=== PATIENT | female | born 1955 | race Caucasian/White ===

== ENCOUNTER 2016-09-19 09:52 | Inpatient (IN) | payer MEDICARE ==
[~2016-09-19] VITALS: Ht 162.6 cm; Wt 48.8 kg
[~2016-09-19 09:52] MED LIST changes: -CHIL100S50 PO; -HYDR12.57 PO; -KETO10 PO; -LISI-515 PO; -METH500T3 PO; -NATU32.5 PO; -OXYC1TAB36 PO; -SENN1TAB PO; -SOMA350T PO
[2016-09-19] MEDS ORDERED: LISI-515 PO (14:28)
[2016-09-19] MEDS ORDERED: HYDR12.57 PO (14:28)
[2016-09-19] MEDS ORDERED: NATU32.5 PO (14:28)
[2016-09-23 07:23] VITALS: BP 152/78; PULSE 70; RESP 20; TEMP 98.5; O2SAT 99
[2016-09-23] MEDS ORDERED: INSULIN HUMAN REGULAR 1,000 UNITS/10 ML VIAL SQ PRN (07:45)
[2016-09-23] MEDS ORDERED: SODIUM CHLORID 0.9% 500 ML IV PRN (07:45)
[2016-09-23] MEDS ORDERED: METOPROLOL TARTRATE 25 MG TAB PO PRN (07:45)
[2016-09-23] MEDS ORDERED: CHLORHEXIDINE GLUCONATE 2 % 1 PACK (2 CLOTHS) TOPICAL PRN (07:45)
[2016-09-23] MEDS ORDERED: LACTATED RINGER'S 1000 ML IV PRN (07:45)
[2016-09-23] MEDS ORDERED: POVIDONE IODINE 5% (ANTISEPSIS KIT) 4 APPLICATIONS EACH NARE PRN (07:45)
[2016-09-23] MEDS ORDERED: SODIUM CHLORIDE 0.9% INJ 100 ML ONE (07:46)
[2016-09-23] MEDS ORDERED: CLINDAMYCIN PHOS 600 MG/4 ML VIAL ONE (07:46)
[2016-09-23] MEDS ORDERED: THROMBIN (TOPICAL) 5,000 UNIT VIAL ONE (07:55)
[2016-09-23] MEDS ORDERED: GENTAMICIN SULFATE 80 MG/2 ML VIAL ONE (07:56)
[2016-09-23] MEDS ORDERED: LIDOCAINE 1%/EPINEPHrine 1:100,000 SOLN 20 ML VIAL ONE (07:56)
[2016-09-23] MEDS ORDERED: GELFOAM SIZE 100 ONE (07:56)
[2016-09-23] MEDS ORDERED: LACTATED RINGER'S 1000 ML INJ 1,000 ML IV SCH (08:00)
[2016-09-23] MEDS ORDERED: DEXAMETHASONE SOD PHOS 4 MG/ML VIAL ONE (08:18)
[2016-09-23] MEDS ORDERED: MIDAZOLAM HCL 2 MG/2 ML VIAL ONE (08:18)
[2016-09-23] MEDS ORDERED: FAMOTIDINE 20 MG/2 ML VIAL ONE (08:19)
[2016-09-23] MEDS ORDERED: APREPITANT 40 MG CAP ONE (08:19)
[2016-09-23] MEDS ORDERED: fentaNYL CITRATE 250 MCG/5 ML AMP ONE (08:25)
[2016-09-23] MEDS ORDERED: CLINDAMYCIN 600 MG/NS 100 ML IV SCH ×2 (10:00)
[2016-09-23] MEDS ORDERED: SODIUM CHLOR 0.9% 250 ML INJ 250 ML IV ONE (12:00)
[2016-09-23] MEDS ORDERED: SODIUM CHLORID 0.9% 500 ML INJ 500 ML IV ONE (12:00)
[2016-09-23] MEDS ORDERED: LACTATED RINGER'S 1000 ML INJ 1,000 ML IV ONE (12:00)
[2016-09-23] MEDS ORDERED: ONDANSETRON HCL 4 MG/2 ML VIAL IV PUSH ONE (12:00)
[2016-09-23] MEDS ORDERED: NORMOSOL R INJ 2,000 ML IV ONE (12:00)
[2016-09-23] MEDS ORDERED: ePHEDrine/NS 25 MG/5 ML SYR IV ONE (12:00)
[2016-09-23] MEDS ORDERED: PHENYLEPH/NS 1000 MCG/10 ML SYR IV ONE (12:00)
[2016-09-23] MEDS ORDERED: PROPOFOL 200 MG/20 ML AMP IV ONE (12:00)
[2016-09-23] MEDS ORDERED: PHENYLEPHRINE HCL 10 MG/ML VIAL IV ONE (12:00)
[2016-09-23] MEDS ORDERED: ACETAMINOPHEN 1000 MG/100 ML VIAL IV ONE (12:41)
[2016-09-23] MEDS ORDERED: RESP: ALBUTEROL 2.5 MG/IPRATROPIUM 0.5 MG NEB (PRN) NEB (18:00)
[2016-09-23] MEDS ORDERED: ACETAMINOPHEN/HYDROcodone 325 MG/5 MG TAB PO PRN (18:00)
[2016-09-23] MEDS ORDERED: SODIUM CHLORIDE 0.9% FLUSH 5 ML FLUSH IVF PRN (18:00)
[2016-09-23] MEDS: D5-1/2 NS + KCL 20 MEQ INJ 1,000 ML IV SCH (18:00)
[2016-09-23] MEDS ORDERED: ONDANSETRON HCL 4 MG/2 ML VIAL IV PRN (18:00)
[2016-09-23] MEDS ORDERED: METHOCARBAMOL 500 MG TAB PO PRN (18:00)
[2016-09-23] MEDS ORDERED: NALOXONE HCL 0.4 MG/ML AMP IV PRN ×2 (18:00)
[2016-09-23] MEDS ORDERED: DO NOT ADM ANY ANTICOAGULANT DRUGS PRN (18:07)
--- NOTE | 2016-09-23 18:38 | PD.OP ---
Operative Report Date of Surgery: September 23, 2016 Preoperative Diagnosis: (1) Lumbar radiculopathy (2) Spondylolisthesis of lumbar region (3) Lumbar canal stenosis (4) Lumbar degenerative disc disease 1. Grade 1 L3 4 and L4 5 spondylolisthesis 2. Lumbar spondylosis and degenerative disc disease, severe L4 5 , moderate L3 4 3. Severe L3 4 and L4 5 stenosis 4. Right L4-L5 radiculopathy Postoperative Diagnosis: (1) Lumbar radiculopathy (2) Spondylolisthesis of lumbar region (3) Lumbar canal stenosis (4) Lumbar degenerative disc disease 1. Grade 1 L3 4 and L4 5 spondylolisthesis 2. Lumbar spondylosis and degenerative disc disease, severe L4 5 , moderate L3 4 3. Severe L3 4 and L4 5 stenosis 4. Right L4-L5 radiculopathy Procedure: 1. Bilateral L3 4 and L4 5 decompressive semi-laminectomy, right facetectomy and foraminotomy-microtechnique 2. L3 4 and L4 5 discectomy, interbody fusion,PEEK cage, autograft and allograft bone with demineralized bone matrix-microtechnique 3. Bilateral L3-L5 posterior instrumentation with pedicle screw fixation. Intraoperative reduction L3 4 and L4 5 anterior listhesis Anesthesia: Gen. Surgeon: Mahamed Ardon Gas Specialist(s): Odessa Toribio Operation and Findings: Findings: Severe epidural adhesions at the right L4 5 greater than L3 4 lateral recess. Relative decreased bone density Procedure in detail The patient was brought to the operating room and general endotracheal anesthesia induced without difficulty Lines were established. Anesthesia Sequential compression devices were in place The patient was positioned prone on the concentric Leo table with the side bolsters and all extremities appropriately padded Leads for intraoperative neuro monitoring were placed prior to positioning and a baseline study obtained Appropriate time-out procedure was performed with all personnel present and in agreement The lumbar region was shaved with clippers and sterilely prepped and draped 1% Xylocaine with epinephrine was used for local infiltration over the incision site which was made approximately 4.5 cm lateral to the midline at the bilateral L3-5 level and carried sharply down to the fascia. The fascia was sharply incised and finger dissection was used to separate the normal intermuscular plane at the L3-5 level, allowing direct palpation of the junction of the and pedicle and transverse process on each side. The entry point for the pedicle screws were determined by anatomic and radiographic landmarks. Using AP and lateral C-arm imaging, the Jamshidi needle was guided through the bilateral L3, L4 and L5 pedicle. The intraoperative C-arm imaging was used to verify appropriate Jamshidi needle placement. The patient's bone density was significantly diminished and great care was required to cannulate the pedicle with the Jamshidi needle. At the right L4 pedicle, the transverse process fractured upon readjustment of the trajectory of the Jamshidi needle. Thus at this level direct visualization under the microscope to determine entry point was required. The lateral aspect of the pedicle was fractured, thus the Jamshidi needle entry point was placed relatively low at the base of the pedicle and junction at the vertebral body. The wires were then placed through the Jamshidi needle cannulas, and the cannula was withdrawn. The wires were temporarily clipped away from the operative field. On the right side Werner elevator was used for subperiosteal elevation of paraspinous musculature and fascia away from the lamina and spinous processes of L3 and L4 and L5. The deep self-retaining retractor was placed sequentially at the L3-4 and L4-5 levels on the right side for the decompression portion of the procedure. The appropriate levels were verified with intraoperative C-arm The microscope was moved into place and used for the remainder of the procedure including the closure The TPS drill with a 5 mm bone bur followed by the Kerrison rongeur was used to remove the inferior two thirds of the lamina at the cephalad level of the decompression and the superior aspect of the lamina at the caudal level of the decompression. This was performed starting on the right side, and then working across midline towards the left. The facetectomy and foraminotomy was performed on the right side at the L3 4 and L4 5 level with the TPS drill and with the 2 and 3 mm Kerrison rongeur. On the side of the cage placement, an additional portion of the medial facet was removed to allow sufficient room for placement of the cage without significant retraction of the thecal sac and exiting nerve root. Hypertrophied ligamentum flavum was elevated away from the thecal sac and exiting nerve roots with the thin ligament dissector and resected with a 15 blade knife and Kerrison rongeur. The thecal sac and exiting nerve root were freed up from surrounding adhesions with the microdissectors and gently retracted medially revealing the underlying disc and annulus sequentially at each level. There were rather severe adhesions of the thecal sac and exiting nerve root to the ligament and osteophytic disc at the L4 5 greater than L3 4 level. Quite a bit of cautious dissection was required and the microscope to free up the nerve root and thecal sac. There was moderate subannular disc herniation. The annulus was incised at each level with the 11 blade knife and discectomy performed with pituitary biopsy forceps and straight and angled curettes At the L4 5 level, the posterior aspect of the vertebral bodies were in direct contact. The interspace was gradually opened with a blunt vertebral body facility environmental technician. The endplate scrapers were used to decorticate the endplates and any remaining debris was removed with the antibiotic irrigation and suction and pituitary biopsy forceps The appropriate size lordotic PEEK cage was packed with retained lamina cancellus autograft, and psoas bone chips, and a small amount of demineralized bone matrix The cage was placed at the L3 4 and then the L4 5 level with a good fit of the cage. Additional bone graft material was placed in the interspace at each level both prior to and after placement of the cage. The placement was checked under the microscope and with intraoperative C-arm and felt to be satisfactory. The thecal sac and nerve roots were probed with the long blunt nerve hook and felt to be well decompressed The cannulated 5.5 mm tap was then used to prepare the pedicle screw sites on each side, with the dilators used to protect the surrounding tissue. The appropriate length Spine Wave Sniper percutaneous cannulated pedicle screw attached to the MIS extenders were placed into the bilateral L3, L4 and L5 pedicle using the existing guidewires which were then removed. Pedicle screw placement was checked with intraoperative C-arm imaging and felt to be satisfactory. The percutaneous rods were placed across the pedicle screws on each side. The locking caps were secured with the torque wrench and anti-torque device Compression and alignment were achieved as necessary with the rods and reducers. The entire construct was checked with intraoperative C-arm and felt to be satisfactory The region was well irrigated with antibiotic irrigation The posterior lateral structures at the bilateral L4 5 levels were decorticated with the TPS drill The shavings were left in place, to which was added the remaining autograft and allograft bone which was firmly packed in place for the posterior lateral fusion. The 7 mm flat fluted drain was left in place at the operative site on the right side and brought out through a incision at the upper lumbar region and secured to the skin with nylon suture and attached to sterile suction bleeding was carefully controlled with the bipolar forceps The closure was performed with 0 Vicryl interrupted for the deep and superficial fascia, with 3-0 Vicryl for the subcutaneous closure and 4-0 Vicryl running subcuticular closure. Dressings sterile Mastisol, Steri-Strips and Primapore was placed The patient was turned into supine position and taken to recovery room in stable condition All counts were correct at the end of the case Estimated blood loss was 100 cc No specimen was sent to pathology Neuro monitoring was stable during the procedure Mahamed Ardon MD September 23, 2016 18:38
[2016-09-23] MEDS: HYDROmorphone HCL PCA 6 MG/30 ML IV SCH (18:50)
[2016-09-23 20:36] VITALS: O2SAT 99
[2016-09-23] MEDS: SODIUM CHLORIDE 0.9% FLUSH 5 ML FLUSH IVF SCH (21:00)
[2016-09-23] MEDS ORDERED: ZOLPIDEM TARTRATE 10 MG TAB PO PRN (22:00)
[2016-09-23] MEDS: PCA - TOTAL MG DILAUDID DELIVERED PER SHIFT OTHER SCH (22:00)
[2016-09-23 22:11] VITALS: BP 117/67; PULSE 81; RESP 20; TEMP 96.6; O2SAT 100
[2016-09-23] MEDS: DOCUSATE SODIUM 100 MG CAP PO SCH (22:52)
[2016-09-23] MEDS: ALPRAZolam 1 MG TAB PO PRN (22:52)
[2016-09-23] MEDS: ACETAMINOPHEN/HYDROcodone 325 MG/10 MG TAB PO PRN (22:54)
--- NOTE | 2016-09-23 23:04 | RADRPT ---
EXAM DATE/TIME: 09/23/2016 09:19 [facility] COMPARISON: No previous studies available for comparison. INDICATIONS : Lumbar spine L3-4-5 laminectomy, fusion, and interbody cages. OR. MEDICAL HISTORY : Chronic obstructive pulmonary disease. SURGICAL HISTORY : None. ENCOUNTER: Initial ACUITY: 1 day PAIN SCORE: Non-responsive. LOCATION: Lumbar L3-4-5 FINDINGS: Postoperative screw and yann fixation noted across L3-4 and 5. No complications identified. CONCLUSION: 1. Postoperative lumbar fusion as above. Jama Harden MD on September 23, 2016 at 23:01 Board Certified Radiologist. This report was verified electronically.
[2016-09-24] VITALS (8 sets, daily range): BP systolic 95–124; BP diastolic 53–73; PULSE 72–86; RESP 17–20; TEMP 96–99.2; O2SAT 95–99
[2016-09-24] MEDS: D5-1/2 NS + KCL 20 MEQ INJ 1,000 ML IV SCH ×2 (04:00→12:07)
[2016-09-24] MEDS: PCA - TOTAL MG DILAUDID DELIVERED PER SHIFT OTHER SCH ×3 (06:00→22:00)
[2016-09-24] MEDS: ALPRAZolam 1 MG TAB PO PRN ×2 (08:22→21:53)
[2016-09-24] MEDS: HYDROCHLOROTHIAZIDE 12.5 MG CAP PO SCH (08:23)
[2016-09-24] MEDS: DOCUSATE SODIUM 100 MG CAP PO SCH ×2 (08:24→21:53)
[2016-09-24] MEDS: PANTOPRAZOLE SOD 40 MG DELAYED RELEASE TAB PO SCH (08:24)
[2016-09-24] MEDS: REMOVE OLD PATCH T-DERMAL SCH (08:24)
[2016-09-24] MEDS: NICOTINE 14 MG/24 HR PATCH T-DERMAL SCH (08:24)
[2016-09-24] MEDS: ACETAMINOPHEN/HYDROcodone 325 MG/10 MG TAB PO PRN ×2 (08:31→21:53)
[2016-09-24] MEDS: SODIUM CHLORIDE 0.9% FLUSH 5 ML FLUSH IVF SCH ×2 (08:34→21:00)
[2016-09-24] MEDS ORDERED: THYROID 32.5 MG PO SCH (09:00)
[2016-09-24] MEDS: HYDROmorphone HCL PCA 6 MG/30 ML IV SCH (11:24)
[2016-09-24 11:34] LABS: AUTOMATED NEUTROPHIL # 5.7 TH/MM3 (1.8-7.7); BASOPHIL # 0.1 TH/MM3 (0-0.2); BASOPHIL % 0.8 % (0.0-2.0); EOSINOPHIL # 0.1 TH/MM3 (0-0.4); EOSINOPHIL % 1.2 % (0.0-4.0); HEMATOCRIT 37.9 % (35.0-46.0); HEMO FLAGS DIFF FINAL; LYMPH % 23.3 % (9.0-44.0); MEAN CELL VOLUME 94.5 FL (80.0-100.0); MEAN CORPUSCULAR HEMOGLOBIN 30.5 PG (27.0-34.0); MEAN CORPUSCULAR HGB CONC 32.3 % (32.0-36.0); MONO % 8.9 % (0.0-8.0); NEUT % 65.8 % (16.0-70.0); PLATELET COUNT 157 TH/MM3 (150-450); RED BLOOD COUNT 4.01 MIL/MM3 (4.00-5.30); RED CELL DISTRIBUTION WIDTH 13.4 % (11.6-17.2); WHITE BLOOD COUNT 8.7 TH/MM3 (4.0-11.0)
[2016-09-24 11:41] LABS: APTT (PATIENT) 27.5 SEC (24.3-30.1); INTERNATIONAL NORMALIZED RATIO 0.9 RATIO; PROTHROMBIN TIME - PATIENT 10.3 SEC (9.8-11.6)
[2016-09-24] MEDS: KETOROLAC TROMETHAMINE 60 MG/2 ML (IM) VIAL IM SCH ×3 (11:56→23:18)
[2016-09-24] MEDS: MORPHINE SULFATE 4 MG/ML INJ IV PRN (11:59)
[2016-09-24 12:13] LABS: BICARBONATE 29.8 MEQ/L (21.0-32.0)
--- NOTE | 2016-09-24 12:48 | HHI.NSPN ---
(Waqar Clark) Note Status Status: Progress Note (Waqar Clark) Interval History Interval History 09/23: This is a 61-year-old female who presented to [facility] for a bilateral L3 4 and L4 5 decompressive semi-laminectomy, right facetectomy and foraminotomy with posterior instrumentation due to lumbar radiculopathy and stenosis. 09/24: The patient is doing well today but does state the pain to her back is not well controlled. She states the pain to the right leg is gone. She reports having gotten up and ambulated with the brace on with assistance and sitting in the chair. She does report having some anxiety due to the pain. Last night she did have some nausea but none at present. (Waqar Clark) Labs, Micro, & Vital Signs Results Allergies Coded Allergies Type Severity Reaction Last Updated Verified Keflex Allergy Severe HIVES 09/19/16 Yes Recent Impressions Lumbar Spine X-Ray 09/23/16 0000 Signed Impressions: Service Date/Time: Friday, September 23, 2016 09:19 - CONCLUSION: 1. Postoperative lumbar fusion as above. Jama Harden MD // 05:59 17:59 05:59 17:59 05:59 17:59 Intake Total 3150 ml 1119 ml Output Total 1025 ml 2605 ml Balance 2125 ml -1486 ml Intake IV Total 150 ml 1119 ml Other 3000 ml Output Urine Total 850 ml 2575 ml Drainage Total 50 ml 30 ml Estimated Blood Loss 125 ml # Bowel Movements 0 Laboratory Tests Test 09/23/16 09/24/16 07:13 10:28 Blood Type O POSITIVE Antibody Screen NEGATIVE Blood Bank Comment White Blood Count 8.7 TH/MM3 Red Blood Count 4.01 MIL/MM3 Hemoglobin 12.3 GM/DL Hematocrit 37.9 % Mean Corpuscular Volume 94.5 FL Mean Corpuscular Hemoglobin 30.5 PG Mean Corpuscular Hemoglobin 32.3 % Concent Red Cell Distribution Width 13.4 % Platelet Count 157 TH/MM3 Mean Platelet Volume 8.9 FL Neutrophils (%) (Auto) 65.8 % Lymphocytes (%) (Auto) 23.3 % Monocytes (%) (Auto) 8.9 % Eosinophils (%) (Auto) 1.2 % Basophils (%) (Auto) 0.8 % Neutrophils # (Auto) 5.7 TH/MM3 Lymphocytes # (Auto) 2.0 TH/MM3 Monocytes # (Auto) 0.8 TH/MM3 Eosinophils # (Auto) 0.1 TH/MM3 Basophils # (Auto) 0.1 TH/MM3 CBC Comment DIFF FINAL Differential Comment Prothrombin Time 10.3 SEC Prothromb Time International 0.9 RATIO Ratio Activated Partial 27.5 SEC Thromboplast Time Sodium Level 137 MEQ/L Potassium Level 4.0 MEQ/L Chloride Level 102 MEQ/L Carbon Dioxide Level 29.8 MEQ/L Anion Gap 5 MEQ/L Blood Urea Nitrogen 5 MG/DL Creatinine 0.36 MG/DL Estimat Glomerular Filtration 184 ML/MIN Rate Random Glucose 89 MG/DL Calcium Level 8.4 MG/DL Constitutional Vital Signs Date Time Temp Pulse Resp B/P Pulse Ox O2 Delivery O2 Flow Rate FiO2 09/24/16 12:41 96.7 81 20 103/73 96 09/24/16 12:06 18 09/24/16 11:24 18 09/24/16 08:36 96.5 72 20 102/54 99 09/24/16 08:05 96 Nasal Cannula 2.00 09/24/16 06:22 96.0 72 20 95/53 97 09/24/16 06:00 20 09/24/16 00:56 97.3 75 20 124/67 99 09/23/16 22:11 96.6 81 20 117/67 100 09/23/16 22:00 18 09/23/16 20:36 99 Nasal Cannula 2.00 09/23/16 19:30 73 20 114/69 99 Nasal Cannula 2 09/23/16 19:15 83 20 116/73 98 Nasal Cannula 2 09/23/16 19:00 90 20 115/68 98 Nasal Cannula 2 09/23/16 18:50 20 09/23/16 18:45 89 20 135/70 98 Nasal Cannula 2 09/23/16 18:30 85 20 101/59 93 Nasal Cannula 2 09/23/16 18:15 87 20 116/52 95 Nasal Cannula 2 09/23/16 18:01 98.3 97 20 105/69 97 Nasal Cannula 2 09/24/16 06:59 Intake Total 4269 ml Output Total 2655 ml Balance 1614 ml (Waqar Clark) Review of Systems/Exam ROS Constitutional: The patient denies any fever or chills. Respiratory: The patient denies any shortness of breath or productive cough. Cardiovascular: The patient denies any chest pain, palpitations or irregular heart beat. Gastrointestinal: The patient did have some nausea last night but none at present. She denies any abdominal pain, vomiting or bowel incontinence. Genitourinary: The patient has a Monson catheter. Musculoskeletal: The patient denies any pain or weakness to the extremities. Back: The patient complains of pain to the back at the incision. Neurological: The patient denies any headache, dizziness, numbness or tingling. Psychiatric: The patient is anxious due to the pain. Exam General: Well developed, well nourished, thin female who appears her stated age , NAD. HEENT: Normocephalic, atraumatic. Respiratory: Essentially clear bilaterally, equal excursion, non-laboured, on NC. Cardiovascular: S1S2 w/RRR w/o M/G/R, radial & pedal pulses 2+ bilaterally, cap refill < 2 sec, no pedal edema. Gastrointestinal: Abdomen soft, nontender, positive bowel sounds. Genitourinary: Monson catheter to BSD w/clear yellow urine. Extremities: PRECIADO w/o difficulty, NTTP, no evident deformity, discolouration or clubbing. Back: Intact surgical dressing, TTP along surgical incision, SHELLI drain to bulb suction w/serosanguinous drainage. Psychiatric: Patient states she is anxious due to pain, readily interacts and smiles, affect normal. Neurological: AAOx3 Speech clear & appropriate Sensation grossly intact to light touch to all extremities Motor strength normal to all flexion & extension muscle groups (Waqar Clark) Medications Current Medications Current Medications Medications (Trade) Dose Ordered Sig/Curt Route Start Time Stop Time Status Last Admin (Ravia 5-325 Mg) 1 tab Q4H PRN PO 09/23/16 18:00 (Ravia 10-325 Mg) 1 tab Q4H PRN PO 09/23/16 18:00 09/24/16 08:31 (Morphine Inj) 4 mg Q3H PRN IV 09/23/16 18:00 09/24/16 11:59 (Narcan Inj) 0.4 mg UNSCH PRN IV 09/23/16 18:00 (Narcan Inj) 0.4 mg UNSCH PRN IV 09/23/16 18:00 (Dilaudid SOLAR DESIGN ENGINEER Inj) 6 mg UNSCH IV 09/23/16 18:00 09/24/16 11:24 SOLAR DESIGN ENGINEER Dosage Infused (Pha) 1 Q8HR OTHER 09/23/16 22:00 09/24/16 06:00 (Colace) 100 mg BID PO 09/23/16 21:00 09/24/16 08:24 (Protonix) 40 mg DAILY PO 09/24/16 09:00 09/24/16 08:24 (Zofran Inj) 4 mg Q6H PRN IV 09/23/16 18:00 (Robaxin) 500 mg Q8HR PRN PO 09/23/16 18:00 (NS Flush) 2 ml UNSCH PRN IVF 09/23/16 18:00 IV Flush 2 ml 2 ml BID IVF 09/23/16 21:00 09/23/16 21:00 (D5-1/2 NS + KCl 20 Meq Inj) 1,000 ml @ 100 mls/hr Q10H IV 09/23/16 18:00 09/24/16 12:07 Miscellaneous Information ALL NURSING DEPARTME... UNSCH PRN .XX 09/23/16 18:07 09/24/16 18:06 (Xanax) 1 mg BID PRN PO 09/23/16 22:00 09/24/16 08:22 (Ambien) 10 mg HS PRN PO 09/23/16 22:00 (Microzide) 12.5 mg DAILY PO 09/24/16 09:00 09/24/16 08:23 (Prinivil) 20 mg HS PO 09/24/16 21:00 Patient Own Medication PT OWN MED: NON-FORMULARY DRUG (Thyr... DAILY PO 09/24/16 09:00 Hold (Habitrol 14 Mg Patch.24 Hr) 1 patch DAILY T-DERMAL 09/24/16 09:00 09/24/16 08:24 Miscellaneous Information 1 DAILY T-DERMAL 09/24/16 09:00 (Toradol Inj) 15 mg Q6HR IM 09/24/16 12:00 09/26/16 00:00 09/24/16 11:56 (Waqar Clark) Medical Decision Making MDM Remarks (1) Lumbar radiculopathy (2) Spondylolisthesis of lumbar region (3) Lumbar canal stenosis (4) Lumbar degenerative disc disease 1. Grade 1 L3 4 and L4 5 spondylolisthesis 2. Lumbar spondylosis and degenerative disc disease, severe L4 5 , moderate L3 4 3. Severe L3 4 and L4 5 stenosis 4. Right L4-L5 radiculopathy POD #1 () s/p: 1. Bilateral L3 4 and L4 5 decompressive semi-laminectomy, right facetectomy and foraminotomy-microtechnique 2. L3 4 and L4 5 discectomy, interbody fusion,PEEK cage, autograft and allograft bone with demineralized bone matrix-microtechnique 3. Bilateral L3-L5 posterior instrumentation with pedicle screw fixation. Intraoperative reduction L3 4 and L4 5 anterior listhesis Patient doing well, stable neurological exam, no pain to the RLE, post-op pain not well controlled per patient (Waqar Clark) Plan Plan Remarks Monitor SHELLI drain output Will advance diet Will add Toradol 15 mg IV q6h x6 doses Will consider increasing SOLAR DESIGN ENGINEER dose if pain remains inadequately controlled Mobilise patient PT/OT eval & tx D/C Monson catheter this afternoon (Waqar Clark) Attending Statement I have personally seen and examined the patient on 09/24/16. Pertinent documentation and study results have been reviewed by the undersigned. I have personally developed the treatment plan and performed medical decision making. Agree with findings, exam, and treatment plan as noted above. Stable postop neurologic exam Continue lumbar drain Physical therapy. Adjust medications for pain as needed. Continuing SOLAR DESIGN ENGINEER at present (Mahamed Ardon MD) Waqar Clark September 24, 2016 12:47 Mahamed Ardon MD September 26, 2016 00:08
[2016-09-24] MEDS: LISINOPRIL 20 MG TAB PO SCH (21:53)
[2016-09-25] MEDS: HYDROmorphone HCL PCA 6 MG/30 ML IV SCH ×2 (00:11→15:15)
[2016-09-25 00:36] VITALS: BP 110/57; PULSE 102; RESP 16; TEMP 97.1; O2SAT 94
[2016-09-25] MEDS: ACETAMINOPHEN/HYDROcodone 325 MG/10 MG TAB PO PRN ×4 (02:55→23:08)
[2016-09-25 05:02] VITALS: BP 116/54; PULSE 96; RESP 16; TEMP 99.1; O2SAT 95
[2016-09-25] MEDS: PCA - TOTAL MG DILAUDID DELIVERED PER SHIFT OTHER SCH ×2 (06:00→14:00)
[2016-09-25] MEDS: KETOROLAC TROMETHAMINE 60 MG/2 ML (IM) VIAL IM SCH ×2 (06:07→12:00)
[2016-09-25] MEDS: D5-1/2 NS + KCL 20 MEQ INJ 1,000 ML IV SCH ×3 (06:08→19:47)
[2016-09-25 07:58] VITALS: BP 124/60; PULSE 95; RESP 16; TEMP 98.9; O2SAT 94
[2016-09-25] MEDS: REMOVE OLD PATCH T-DERMAL SCH (09:00)
[2016-09-25] MEDS: SODIUM CHLORIDE 0.9% FLUSH 5 ML FLUSH IVF SCH ×2 (09:00→21:00)
[2016-09-25 09:14] VITALS: O2SAT 94
[2016-09-25] MEDS: PANTOPRAZOLE SOD 40 MG DELAYED RELEASE TAB PO SCH (09:35)
[2016-09-25] MEDS: ALPRAZolam 1 MG TAB PO PRN ×2 (09:35→23:08)
[2016-09-25] MEDS: DOCUSATE SODIUM 100 MG CAP PO SCH ×2 (09:35→23:07)
[2016-09-25] MEDS: HYDROCHLOROTHIAZIDE 12.5 MG CAP PO SCH (09:35)
[2016-09-25] MEDS: NICOTINE 14 MG/24 HR PATCH T-DERMAL SCH (09:35)
[2016-09-25] MEDS: MORPHINE SULFATE 4 MG/ML INJ IV PRN ×2 (09:38→12:33)
[2016-09-25 12:26] VITALS: BP 116/55; PULSE 82; RESP 16; TEMP 98.5; O2SAT 91
[2016-09-25] MEDS: KETOROLAC TROMETHAMINE 30 MG/ML (IVP) VIAL IV PUSH SCH ×2 (15:17→18:53)
[2016-09-25 20:00] VITALS: BP 130/63; PULSE 85; RESP 18; TEMP 99; O2SAT 92
[2016-09-25] MEDS: LISINOPRIL 20 MG TAB PO SCH (23:08)
[2016-09-26] VITALS: BP 125/65; PULSE 86; RESP 20; TEMP 98.9; O2SAT 93
--- NOTE | 2016-09-26 00:07 | HHI.NSPN ---
History Chief Complaint: back pain Interval History Date of Surgery: September 23, 2016 Procedure: 1. Bilateral L3 4 and L4 5 decompressive semi-laminectomy, right facetectomy and foraminotomy-microtechnique 2. L3 4 and L4 5 discectomy, interbody fusion,PEEK cage, autograft and allograft bone with demineralized bone matrix-microtechnique 3. Bilateral L3-L5 posterior instrumentation with pedicle screw fixation. Intraoperative reduction L3 4 and L4 5 anterior listhesis Exam Results Vital Signs Date Time Temp Pulse Resp B/P Pulse Ox O2 Delivery O2 Flow Rate FiO2 09/25/16 20:00 99.0 85 18 130/63 92 09/25/16 09:14 Nasal Cannula 2.00 09/24/16 20:05 21 Intake and Output 09/25/16 09/25/16 09/26/16 08:00 16:00 00:00 Intake Total 480 ml 240 ml Output Total 50 ml 30 ml Balance 430 ml 240 ml -30 ml Physical Examination Respirations clear and regular Pulse regular Abdomen soft nontender No extremity edema Moderate lumbar tenderness Mild to moderate drain output Sensation intact by touch lower extremities Strength within normal limits lower extremities Medical Decision Making Impression and Plan Impression: 1. Stable neurologic exam postop by 22/08/16. Postop low back pain gradually improving Plan: Discussed with patient on 09/25/16. Discontinue lumbar drain in a.m. Hydrocodone not working well for pain. We will change to Percocet. Add Robaxin for muscle spasm. Toradol Continue therapy Continue laxative Mahamed Ardon MD September 26, 2016 00:07
[2016-09-26] MEDS: PCA - TOTAL MG DILAUDID DELIVERED PER SHIFT OTHER SCH ×3 (01:24→14:00)
[2016-09-26] MEDS: KETOROLAC TROMETHAMINE 30 MG/ML (IVP) VIAL IV PUSH SCH (01:24)
[2016-09-26 04:00] VITALS: BP 89/51; PULSE 75; RESP 20; TEMP 97.3; O2SAT 93
[2016-09-26] MEDS: METHOCARBAMOL 500 MG TAB PO SCH ×3 (06:36→22:31)
[2016-09-26] MEDS: KETOROLAC TROMETHAMINE 10 MG TAB PO SCH ×3 (06:36→18:02)
[2016-09-26 08:00] VITALS: BP 111/55; PULSE 76; RESP 18; TEMP 98.7; O2SAT 97
[2016-09-26] MEDS: DOCUSATE SODIUM 50 MG/SENNA 8.6 MG TAB PO SCH ×2 (08:37→20:19)
[2016-09-26] MEDS: ALPRAZolam 1 MG TAB PO PRN ×2 (08:37→20:26)
[2016-09-26] MEDS: PANTOPRAZOLE SOD 40 MG DELAYED RELEASE TAB PO SCH (08:38)
[2016-09-26] MEDS: HYDROCHLOROTHIAZIDE 12.5 MG CAP PO SCH (08:40)
[2016-09-26] MEDS: SODIUM CHLORIDE 0.9% FLUSH 5 ML FLUSH IVF SCH ×2 (08:41→20:08)
[2016-09-26] MEDS: REMOVE OLD PATCH T-DERMAL SCH (08:42)
[2016-09-26] MEDS: NICOTINE 14 MG/24 HR PATCH T-DERMAL SCH (08:42)
[2016-09-26] MEDS: oxyCODONE/ACETAMINOPHEN 10 MG/325 MG TAB PO PRN ×3 (08:53→20:21)
[2016-09-26 12:00] VITALS: BP 90/51; PULSE 71; RESP 18; TEMP 96.5; O2SAT 95
--- NOTE | 2016-09-26 12:37 | HHI.NSPN ---
(Waqar Clark) Note Status Status: Progress Note (Waqar Clark) Interval History Interval History 09/23: This is a 61-year-old female who presented to [facility] for a bilateral L3 4 and L4 5 decompressive semi-laminectomy, right facetectomy and foraminotomy with posterior instrumentation due to lumbar radiculopathy and stenosis. 09/24: The patient is doing well today but does state the pain to her back is not well controlled. She states the pain to the right leg is gone. She reports having gotten up and ambulated with the brace on with assistance and sitting in the chair. She does report having some anxiety due to the pain. Last night she did have some nausea but none at present. 09/26: The patient states she is doing well this afternoon when seen. She does have some pain to the back. The lumbar drain was removed this morning. (Waqar Clark) Labs, Micro, & Vital Signs Constitutional Vital Signs Date Time Temp Pulse Resp B/P Pulse Ox O2 Delivery O2 Flow Rate FiO2 09/26/16 08:00 98.7 76 18 111/55 97 09/26/16 06:00 16 09/26/16 04:00 97.3 75 20 89/51 93 09/26/16 01:24 16 09/26/16 00:00 98.9 86 20 125/65 93 09/25/16 20:00 99.0 85 18 130/63 92 09/25/16 16:26 18 09/25/16 16:26 18 09/25/16 15:54 18 09/25/16 15:15 18 09/25/16 14:00 18 09/25/16 13:33 18 09/26/16 07:00 Intake Total 720 ml Output Total 45 ml Balance 675 ml (Waqar Clark) Review of Systems/Exam ROS Constitutional: The patient denies any fever or chills. Respiratory: The patient denies any shortness of breath or productive cough. Cardiovascular: The patient denies any chest pain, palpitations or irregular heart beat. Gastrointestinal: The patient denies any abdominal pain, nausea, vomiting or bowel incontinence. Musculoskeletal: The patient denies any pain or weakness to the extremities. Back: The patient complains of pain to the back. Neurological: The patient denies any headache, dizziness, numbness or tingling. Exam General: Patient drowsy, appears slightly uncomfortable, NAD. HEENT: Normocephalic, atraumatic. Respiratory: CTAB w/o W/R/R, equal excursion, non-laboured, on NC. Cardiovascular: S1S2 w/RRR w/o M/G/R, radial & pedal pulses 2+ bilaterally, cap refill < 2 sec, no pedal edema. Gastrointestinal: Abdomen soft, nontender, positive bowel sounds. Extremities: PRECIADO w/o difficulty, NTTP, no evident deformity, discolouration or clubbing. Back: Intact surgical dressing, TTP along surgical incision, dried sanguinous drainage along incision but no active drainage, erythema or streaking noted. SHELLI drain insertion site with intact dressing with some shadowing. Neurological: AAOx3 Speech clear & appropriate Sensation grossly intact to light touch to all extremities Motor strength normal to all flexion & extension muscle groups (Waqar Clark) Medications Current Medications Current Medications Medications (Trade) Dose Ordered Sig/Curt Route Start Time Stop Time Status Last Admin ([place] 5-325 Mg) 1 tab Q4H PRN PO 09/23/16 18:00 (Morphine Inj) 4 mg Q3H PRN IV 09/23/16 18:00 09/25/16 12:33 (Narcan Inj) 0.4 mg UNSCH PRN IV 09/23/16 18:00 (Narcan Inj) 0.4 mg UNSCH PRN IV 09/23/16 18:00 (Dilaudid BICYCLE ASSEMBLER Inj) 6 mg UNSCH IV 09/23/16 18:00 09/25/16 15:15 BICYCLE ASSEMBLER Dosage Infused (Pha) 1 Q8HR OTHER 09/23/16 22:00 09/26/16 06:00 (Protonix) 40 mg DAILY PO 09/24/16 09:00 09/26/16 08:38 (Zofran Inj) 4 mg Q6H PRN IV 09/23/16 18:00 (NS Flush) 2 ml UNSCH PRN IVF 09/23/16 18:00 IV Flush 2 ml 2 ml BID IVF 09/23/16 21:00 09/25/16 21:00 (D5-1/2 NS + KCl 20 Meq Inj) 1,000 ml @ 30 mls/hr Q24H IV 09/23/16 18:00 09/25/16 19:47 (Xanax) 1 mg BID PRN PO 09/23/16 22:00 09/26/16 08:37 (Ambien) 10 mg HS PRN PO 09/23/16 22:00 (Microzide) 12.5 mg DAILY PO 09/24/16 09:00 09/25/16 09:35 (Prinivil) 20 mg HS PO 09/24/16 21:00 09/25/16 23:08 Patient Own Medication PT OWN MED: NON-FORMULARY DRUG (Thyr... DAILY PO 09/24/16 09:00 Hold (Habitrol 14 Mg Patch.24 Hr) 1 patch DAILY T-DERMAL 09/24/16 09:00 09/26/16 08:42 Miscellaneous Information 1 DAILY T-DERMAL 09/24/16 09:00 09/26/16 08:42 (Robaxin) 500 mg Q8HR PO 09/26/16 06:00 09/26/16 06:36 (Toradol) 10 mg Q6HR PO 09/26/16 06:00 10/01/16 05:59 09/26/16 06:36 (Mary-Colace) 1 tab BID PO 09/26/16 09:00 09/26/16 08:37 (Percocet 10-325 Mg) 1 tab Q4H PRN PO 09/26/16 00:15 09/26/16 08:53 (Waqar Clark) Medical Decision Making MDM Remarks (1) Lumbar radiculopathy (2) Spondylolisthesis of lumbar region (3) Lumbar canal stenosis (4) Lumbar degenerative disc disease 1. Grade 1 L3 4 and L4 5 spondylolisthesis 2. Lumbar spondylosis and degenerative disc disease, severe L4 5 , moderate L3 4 3. Severe L3 4 and L4 5 stenosis 4. Right L4-L5 radiculopathy POD #3 () s/p: 1. Bilateral L3 4 and L4 5 decompressive semi-laminectomy, right facetectomy and foraminotomy-microtechnique 2. L3 4 and L4 5 discectomy, interbody fusion,PEEK cage, autograft and allograft bone with demineralized bone matrix-microtechnique 3. Bilateral L3-L5 posterior instrumentation with pedicle screw fixation. Intraoperative reduction L3 4 and L4 5 anterior listhesis Patient doing well, stable neurological exam, no pain to the RLE, post-op pain better controlled (Waqar Clark) Plan Plan Remarks Regular diet Toradol 10 mg PO q6h Mobilise patient PT/OT eval & tx HHC consult (Waqar Clark) Attending Statement I have personally seen and examined the patient on 09/26/16. Pertinent documentation and study results have been reviewed by the undersigned. I have personally developed the treatment plan and performed medical decision making. Agree with findings, exam, and treatment plan as noted above. Plan discharge home with home health care. She will need a walker. Still no bowel movement. Additional medication requested. BICYCLE ASSEMBLER discontinued. Continuing Percocet for pain (Mahamed Ardon MD) Waqar Clark September 26, 2016 12:36 Mahamed Ardon MD September 26, 2016 20:50
--- NOTE | 2016-09-26 13:09 | HHI.FF ---
Face to Face Verification Diagnosis: (1) Lumbar radiculopathy (2) Lumbar degenerative disc disease (3) Lumbar canal stenosis (4) Spondylolisthesis of lumbar region Physical Therapy Order: Evaluate and Treat Occupational Therapy Order: Evaluate and Treat Home Health Nursing Order: Nursing assessment with vital signs I have seen patient Isabelle Westfall on 09/26/16. My clinical findings support the need for the requested home health care services because: Limited ability to care for self High risk of falls I certify that my clinical findings support that this patient is homebound because: Post-op weakness Unsteady gait/balance Waqar Clark [facility] September 26, 2016 13:09
[2016-09-26 16:00] VITALS: BP 116/58; PULSE 77; RESP 18; TEMP 96.4; O2SAT 99
[2016-09-26] MEDS ORDERED: SENN1TAB PO (16:01)
--- NOTE | 2016-09-26 16:03 | HHI.DCPOC ---
Discharge Care Plan Diagnosis: (1) Lumbar degenerative disc disease (2) Lumbar canal stenosis (3) Spondylolisthesis of lumbar region Your Health Problems Are: Difficulty with ADL Exercise Tolerance Goals to Promote Your Health * To prevent worsening of your condition and complications Wear the LSO brace when out-of-bed sitting or walking * To maintain your health at the optimal level Directions to Meet Your Goals Take your medications as prescribed Follow your dietary instruction Follow activity as directed Keep your appointments as scheduled Take your immunizations and boosters as scheduled If your symptoms worsen call your PCP, if no PCP go to Urgent Care Center or Emergency Room Smoking is Dangerous to Your Health. Avoid second hand smoke Call the 24-hour hour crisis hotline for domestic abuse at Waqar Clark September 26, 2016 16:02
--- NOTE | 2016-09-26 16:09 | HHI.DS ---
Discharge Summary Admission Date September 23, 2016 at 06:37 Discharge Date: September 27, 2016 Admitting Diagnosis (1) Lumbar radiculopathy Diagnosis: Principal ICD Code: M54.16 (2) Lumbar degenerative disc disease Diagnosis: Secondary ICD Code: M51.36 (3) Lumbar canal stenosis Diagnosis: Secondary ICD Code: M48.06 (4) Spondylolisthesis of lumbar region Diagnosis: Secondary ICD Code: M43.16 Procedures Prodeure (): 1. Bilateral L3 4 and L4 5 decompressive semi-laminectomy, right facetectomy and foraminotomy-microtechnique 2. L3 4 and L4 5 discectomy, interbody fusion,PEEK cage, autograft and allograft bone with demineralized bone matrix-microtechnique 3. Bilateral L3-L5 posterior instrumentation with pedicle screw fixation. Intraoperative reduction L3 4 and L4 5 anterior listhesis CBC/BMP: 09/24/16 1028 09/24/16 1028 Significant Findings Laboratory Tests Test 09/24/16 10:28 Monocytes (%) (Auto) 8.9 % (0.0-8.0) Blood Urea Nitrogen 5 MG/DL (7-18) Creatinine 0.36 MG/DL (0.50-1.00) Calcium Level 8.4 MG/DL (8.5-10.1) Hospital Course The patient presented to [facility] for surgery on . Post- operatively the patient was admitted to a regular med/surg floor. She worked with Physical Therapy and it was recommended that she have a wheeled walker to use for ambulation and [facility] for further therapy. She was tolerating a diet and ambulating with the walker and assistance at the time of discharge. Her pain control was controlled with medication. Pt Condition on Discharge: Good Discharge Disposition: Disch w/ Home Health Serv Discharge Instructions DIET: Follow Instructions for: As Tolerated, No Restrictions ACTIVITIES You can perform: Weight Bearing As Mable Activities to Avoid: Lifting/Bending, Strenuous Activity ADDITIONAL Activity Instructio: Wear your brace when out-of-bed sitting or ambulating. Additional Information Call for a follow up appointment in [address] Ardon Keep the dressing to the surgical site dry for 7 days after surgery. After that you may take the outer dressing off but leave the steri-strips on. You may then shower and let the steri-strips fall off in the shower. Avoid any products containing aspirin or NSAIDS (ibuprofen, Motrin, Advil, Aleve , etc.). Waqar Clark September 26, 2016 16:09
[2016-09-26] MEDS: D5-1/2 NS + KCL 20 MEQ INJ 1,000 ML IV SCH (18:02)
[2016-09-26 20:00] VITALS: BP 132/63; PULSE 82; RESP 20; TEMP 97.5; O2SAT 98
[2016-09-26] MEDS: LISINOPRIL 20 MG TAB PO SCH (20:20)
[2016-09-26] MEDS ORDERED: BISACODYL 10 MG SUPP RECTAL PRN (21:15)
[2016-09-26] MEDS: MORPHINE SULFATE 4 MG/ML INJ IV PRN (22:35)
[2016-09-27] VITALS: BP 128/62; PULSE 76; RESP 20; TEMP 97.8; O2SAT 97
[2016-09-27] MEDS: KETOROLAC TROMETHAMINE 10 MG TAB PO SCH ×3 (00:56→12:00)
[2016-09-27] MEDS: oxyCODONE/ACETAMINOPHEN 10 MG/325 MG TAB PO PRN ×4 (00:59→13:46)
[2016-09-27 04:00] VITALS: BP 117/57; PULSE 76; RESP 20; TEMP 97.2; O2SAT 92
[2016-09-27] MEDS: METHOCARBAMOL 500 MG TAB PO SCH (05:25)
[2016-09-27 08:00] VITALS: BP 131/62; PULSE 66; RESP 20; TEMP 97.2; O2SAT 94
[2016-09-27] MEDS: ALPRAZolam 1 MG TAB PO PRN (09:40)
[2016-09-27] MEDS: HYDROCHLOROTHIAZIDE 12.5 MG CAP PO SCH (09:41)
[2016-09-27] MEDS: DOCUSATE SODIUM 50 MG/SENNA 8.6 MG TAB PO SCH (09:41)
[2016-09-27] MEDS: NICOTINE 14 MG/24 HR PATCH T-DERMAL SCH (09:41)
[2016-09-27] MEDS: PANTOPRAZOLE SOD 40 MG DELAYED RELEASE TAB PO SCH (09:41)
[2016-09-27 12:00] VITALS: BP 143/68; PULSE 68; RESP 18; TEMP 97.7; O2SAT 90
[2016-09-27] MEDS ORDERED: METH500T3 PO (13:29)
[2016-09-27] MEDS ORDERED: OXYC1TAB36 PO (13:29)
[2016-09-27] MEDS ORDERED: KETO10 PO (13:29)
[2016-09-27 16:00] VITALS: BP 133/83; PULSE 72; TEMP 97.9; O2SAT 95
[2016-10-16] MEDS ORDERED: SOMA350T PO (14:20)
== END 2016-09-27 17:32 | disposition home health service (06) | DRG 460 ==
LOC: HSDI 09-23 06:37 → N05A 09-23 19:51
PROVIDERS: ADMIT Neurological Surgery; ATTEND Neurological Surgery
PROC: 0SB20ZZ Excision of Lumbar Vertebral Disc, Open Approach (ICD-10-PCS; 2016-09-23)
PROC: 0QB30ZZ Excision of Left Pelvic Bone, Open Approach (ICD-10-PCS; 2016-09-23)
PROC: 0SG10AJ Fusion of 2 or more Lumbar Vertebral Joints with Interbody Fusion Device, Posterior Approach, Anterior Column, Open Approach (ICD-10-PCS; principal; 2016-09-23 08:27)
DX: M48.06 Spinal stenosis, lumbar region (principal); F06.4 Anxiety disorder due to known physiological condition; M47.26 Other spondylosis with radiculopathy, lumbar region; M51.16 Intervertebral disc disorders with radiculopathy, lumbar region; M43.16 Spondylolisthesis, lumbar region
CPT/HCPCS: 72100; 76000; 80048; 85025; 85610; 85730; 86850; 86900; 86901; 94150; C1713; J0131; J1100; J1170; J1580; J1885; J2250; J2270; J2370; J2405; J3010; J3480; J7040; J7050; J7120; J8501; L0484

== ENCOUNTER → 2016-09-19 | Outpatient (CLI) | payer MEDICARE ==
[~2016-09-19] MED LIST: CARI350T20 PO; CHIL100S50 PO; HYDR-2374 PO; HYDR12.57 PO; KETO10 PO; LISI-515 PO; METH500T3 PO; NATU32.5 PO; OXYC1TAB36 PO; SENN1TAB PO; SOMA350T PO; XANA1TAB2 PO
[2016-09-19 11:34] LABS: HEMATOCRIT 48.5 % (35.0-46.0); MEAN CELL VOLUME 94.1 FL (80.0-100.0); MEAN CORPUSCULAR HEMOGLOBIN 31.2 PG (27.0-34.0); MEAN CORPUSCULAR HGB CONC 33.1 % (32.0-36.0); PLATELET COUNT 221 TH/MM3 (150-450); RED BLOOD COUNT 5.16 MIL/MM3 (4.00-5.30); RED CELL DISTRIBUTION WIDTH 13.3 % (11.6-17.2); REVIEW FLAG FINAL; WHITE BLOOD COUNT 6.8 TH/MM3 (4.0-11.0)
[2016-09-19 11:38] LABS: PROTHROMBIN TIME - PATIENT 10.6 SEC (9.8-11.6)
--- NOTE | 2016-09-19 12:05 | RADRPT ---
EXAM DATE/TIME: 09/19/2016 11:43 [facility] COMPARISON: No previous studies available for comparison. INDICATIONS : Evaluate for pneumothorax, pneumonia and communicable diseases. Pre-op Lumbar surgery MEDICAL HISTORY : Chronic obstructive pulmonary disease. Smoker SURGICAL HISTORY : None. ENCOUNTER: Initial ACUITY: 1 day PAIN SCORE: 0/10 LOCATION: chest FINDINGS: PA and lateral views of the chest demonstrate the lungs to be symmetrically aerated without evidence of mass, infiltrate or effusion. The cardiomediastinal contours are unremarkable. Osseous structure s are intact. CONCLUSION: Normal examination except for diffuse emphysema and hyperinflation. Luis Yarbrough MD on September 19, 2016 at 12:03 Board Certified Radiologist. This report was verified electronically.
[2016-09-19 12:14] LABS: BICARBONATE 31.3 MEQ/L (21.0-32.0); POTASSIUM 4.4 MEQ/L (3.5-5.1)
--- NOTE | 2016-09-20 22:00 | EKG ---
Date Performed: 09/19/2016 Time Performed: 11:05:15 PTAGE: 61 years EKG: Sinus rhythm POSSIBLE RIGHT ATRIAL ENLARGEMENT LEFT ATRIAL ENLARGEMENT POSSIBLE RIGHT VENTRICULAR CONDUCTION GERRY Y NONSPECIFIC T-WAVE ABNORMALITY ABNORMAL ECG NO PREVIOUS TRACING DOCTOR: Blayne Read Interpretating Date/Time 09/20/2016 21:59:17
== END ==
LOC: CPRE 10:19
PROVIDERS: ATTEND Neurological Surgery
DX: Z01.810 Encounter for preprocedural cardiovascular examination (principal); Z01.811 Encounter for preprocedural respiratory examination; Z01.812 Encounter for preprocedural laboratory examination; Z01.818 Encounter for other preprocedural examination; Z79.01 Long term (current) use of anticoagulants; M48.06 Spinal stenosis, lumbar region; M54.16 Radiculopathy, lumbar region; M43.16 Spondylolisthesis, lumbar region; R94.31 Abnormal electrocardiogram [ECG] [EKG]
CPT/HCPCS: 36415; 71020; 80048; 85027; 85610; 93005